=== PATIENT | female | born 1995 | race Caucasian/White ===

== ENCOUNTER 2019-04-24 11:50 | Inpatient (IN) | payer OTHER ==
[~2019-04-24] VITALS: Ht 175.3 cm; Wt 115.0 kg
[~2019-04-24 11:50] MED LIST: METF500T17 PO; PREN1TAB10 PO
[2019-04-24 12:31] LABS: CREATININE,URINE RANDOM 21.7 mg/dL
[2019-04-24 12:32] LABS: ALANINE AMINOTRANSFERASE 90 U/L (12-78); ALBUMIN 2.9 g/dL (3.4-5.0); ANION GAP 8 mmol/L (5-15); CALCIUM 8.9 mg/dL (8.5-10.1); CHLORIDE 110 mmol/L (98-107)
[2019-04-24 12:34] LABS: ALKALINE PHOSPHATASE 190 U/L (45-117); BILIRUBIN,TOTAL 0.7 mg/dL (0.2-1.0); TOTAL PROTEIN 6.6 g/dL (6.4-8.2)
[2019-04-24] MEDS ORDERED: OXYTOCIN 30U/ 0.9% NaCL 500ML 500 ML IV ONE (12:55)
[2019-04-24] MEDS: D5%-LACTATED RINGERS 1,000 ML IV SCH ×2 (12:55→20:55)
[2019-04-24] MEDS ORDERED: OXYTOCIN 30U/ 0.9% NaCL 500ML 500 ML IV PRN (12:55)
[2019-04-24 12:57] LABS: MEAN CORPUSCULAR HEMOGLOBIN 31.3 pg (27.0-34.8); MEAN CORPUSCULAR HGB CONC 33.5 g/dL (32.4-35.8); MEAN CORPUSCULAR VOLUME 93.3 fL (80-100); MEAN PLATELET VOLUME 13.7 fL (7.4-10.4); PLATELET COUNT 118 x10^3/uL (130-400); RED BLOOD COUNT 4.06 x10^6/uL (3.82-5.3); RED CELL DISTRIBUTION WIDTH 13.4 % (9.6-15.2)
[2019-04-24 12:59] LABS: BASOPHILS # (AUTO) 0.02 x10^3/uL (0-0.1); BASOPHILS % (AUTO) 0 % (0-1); EOSINOPHILS # (AUTO) 0.02 x10^3/uL (0-0.4); EOSINOPHILS % (AUTO) 0 % (1-7); LYMPHOCYTES # (AUTO) 1.69 x10^3/uL (1-3.4); LYMPHOCYTES % (AUTO) 17 % (22-44); MD MORPH REVIEW ONLY; MONOCYTES # (AUTO) 0.81 x10^3/uL (0.2-0.8); MONOCYTES % (AUTO) 8 % (2-9); NEUTROPHILS # (AUTO) 7.63 x10^3/uL (1.8-6.8); NEUTROPHILS % (AUTO) 75 % (42-75)
[2019-04-24 13:00] LABS: <PLATELET ESTIMATE> DECREASED; <RBC MORPHOLOGY> NORMAL; LARGE PLATELETS 1+
[2019-04-24] MEDS ORDERED: FENTANYL PF 100 MCG/2ML IV PRN (13:00)
[2019-04-24] MEDS ORDERED: METOCLOPRAMIDE 5 MG/ML, 2ML IVPush PRN (13:00)
[2019-04-24] MEDS ORDERED: MAGNESIUM SULFATE PMX 4GM/100M 100 ML IVPB ONE (13:00)
[2019-04-24] MEDS ORDERED: FENTANYL PF 100 MCG/2ML IVPush PRN (13:00)
[2019-04-24] MEDS ORDERED: SODIUM CITRATE/CITRIC ACID 30 ML UDC PO PRN (13:00)
[2019-04-24] MEDS ORDERED: CALCIUM CARBONATE 500 MG TAB.CHEW PO PRN (13:00)
[2019-04-24] MEDS ORDERED: TERBUTALINE 1 MG/ML, 1ML IVPush PRN (13:00)
[2019-04-24] MEDS ORDERED: TERBUTALINE 1 MG/ML, 1ML SQ PRN (13:00)
[2019-04-24] MEDS ORDERED: MAGNESIUM SULF. PMX 20GM/500ML 500 ML IV ONE ×2 (13:04→23:46)
[2019-04-24] MEDS ORDERED: MAGNESIUM SULFATE PMX 4GM/100M 100 ML ONE (13:04)
[2019-04-24] MEDS ORDERED: OXYTOCIN 30U/ 0.9% NaCL 500ML 500 ML ONE (13:04)
[2019-04-24] MEDS ORDERED: ONDANSETRON 2MG/ML, 2ML ONE ×2 (13:10→21:17)
[2019-04-24] MEDS: LACTATED RINGERS 1,000 ML IV SCH ×4 (13:14→21:47)
[2019-04-24] MEDS: ONDANSETRON 2MG/ML, 2ML IVPush PRN ×2 (13:14→21:19)
[2019-04-24] MEDS ORDERED: NEWBORN KIT ONE (13:23)
[2019-04-24] MEDS: MAGNESIUM SULF. PMX 20GM/500ML 500 ML IV SCH ×2 (13:43→23:49)
[2019-04-24] MEDS ORDERED: FENTANYL/BUPIV./NS/PF 250 ML EPIDCONT SCH (13:47)
[2019-04-24] MEDS ORDERED: EPHEDRINE 50 MG/ML, 1ML IVPush PRN (14:00)
[2019-04-24] MEDS ORDERED: LACTATED RINGERS 1,000 ML IVBOLUS PRN (14:00)
[2019-04-24] MEDS ORDERED: MISOPROSTOL 200 MCG TABLET ONE (14:02)
[2019-04-24] MEDS ORDERED: ACETAMINOPHEN 325 MG TABLET ONE (14:17)
[2019-04-24] MEDS ORDERED: ACETAMINOPHEN 325 MG TABLET PO PRN (14:30)
[2019-04-24] MEDS ORDERED: FENTANYL PF 500 MCG, BUPIVACAINE/PF 0.5%, 30ML 62.5 ML in SODIUM CHLORIDE 0.9% 177.5 ML EPIDCONT SCH (14:30)
[2019-04-24 15:23] VITALS: BP 137/85
[2019-04-24] MEDS ORDERED: BUPIVACAINE 0.25% ONE ×2 (19:42→19:43)
[2019-04-24] MEDS ORDERED: LIDOCAINE/PF 1.5%-EPI 1:200K, 30ML ONE (19:43)
[2019-04-24] MEDS ORDERED: EPHEDRINE 50 MG/ML, 1ML ONE ×2 (19:43→20:02)
[2019-04-24] MEDS ORDERED: FENTANYL/BUPIV./NS/PF 250 ML EPIDCONT ONE (19:43)
[2019-04-24 20:30] VITALS: BP 154/93
[2019-04-25] MEDS ORDERED: ONDANSETRON 2MG/ML, 2ML ONE ×3 (02:45→18:14)
[2019-04-25] MEDS: ONDANSETRON 2MG/ML, 2ML IVPush PRN (02:49)
[2019-04-25] MEDS: D5%-LACTATED RINGERS 1,000 ML IV SCH (03:59)
[2019-04-25] MEDS: LACTATED RINGERS 1,000 ML IV SCH ×2 (09:00→11:00)
[2019-04-25] MEDS ORDERED: MAGNESIUM SULF. PMX 20GM/500ML 500 ML IV ONE ×2 (10:05→21:38)
[2019-04-25] MEDS: MAGNESIUM SULF. PMX 20GM/500ML 500 ML IV SCH ×2 (10:11→21:42)
[2019-04-25] MEDS ORDERED: LACTATED RINGERS 1,000 ML IV SCH (12:15)
[2019-04-25] MEDS: OXYTOCIN 30U/ 0.9% NaCL 500ML 500 ML IV SCH ×2 (12:15→22:15)
[2019-04-25] MEDS ORDERED: SODIUM CITRATE/CITRIC ACID 30 ML UDC ONE (12:21)
[2019-04-25] MEDS ORDERED: METOCLOPRAMIDE 5 MG/ML, 2ML ONE (12:21)
[2019-04-25] MEDS ORDERED: KETOROLAC 30 MG/1 ML ONE ×2 (12:25→20:29)
[2019-04-25] MEDS ORDERED: PROPOFOL 10 MG/ML, 20ML ONE (12:25)
[2019-04-25] MEDS ORDERED: CEFAZOLIN 1,000 MG ONE (12:25)
[2019-04-25] MEDS ORDERED: OXYTOCIN 10 UNITS/ML, 1ML ONE (12:25)
[2019-04-25] MEDS ORDERED: EPHEDRINE 50 MG/ML, 1ML ONE (12:25)
[2019-04-25] MEDS ORDERED: SUCCINYLCHOLINE 20 MG/ML, 10ML ONE (12:25)
[2019-04-25] MEDS ORDERED: FENTANYL PF 100 MCG/2ML ONE ×4 (12:25→14:12)
[2019-04-25] MEDS ORDERED: DEXAMETHASONE 4 MG/ML, 1ML ONE (12:25)
[2019-04-25] MEDS ORDERED: PHENYLEPHRINE 10 MG/ML ONE (12:25)
[2019-04-25] MEDS ORDERED: CALCIUM CARBONATE 500 MG TAB.CHEW PO PRN (12:30)
[2019-04-25] MEDS ORDERED: RHOGAM FROM BLOOD BANK 1 NOTE EA IM/IV ONE (12:30)
[2019-04-25] MEDS ORDERED: DIPH,PERTUSS(ACELL),TET VAC/PF NC IM-VACC PRN (12:30)
[2019-04-25] MEDS ORDERED: SIMETHICONE 80 MG CHEW TAB PO PRN (12:30)
[2019-04-25] MEDS ORDERED: MISOPROSTOL 200 MCG TABLET PR PRN (12:30)
[2019-04-25] MEDS ORDERED: ONDANSETRON 2MG/ML, 2ML IV PRN (12:30)
[2019-04-25] MEDS ORDERED: OXYcodone/APAP 5/325MG TABLET PO PRN (12:30)
[2019-04-25] MEDS ORDERED: ACETAMINOPHEN 325 MG TABLET PO PRN (12:30)
[2019-04-25] MEDS ORDERED: morphine SULFATE/PF 0.5 MG/ML, 10ML ONE (13:18)
[2019-04-25] MEDS ORDERED: PROMETHAZINE 25 MG/ML, 1ML IV PRN (13:30)
[2019-04-25] MEDS ORDERED: MEPERIDINE/PF 25MG/0.5ML IVPush PRN (13:30)
[2019-04-25] MEDS ORDERED: OXYcodone 5 MG/5 ML ORAL.SOL UDC PO PRN ×2 (13:30→14:30)
[2019-04-25] MEDS ORDERED: HYDROmorphone 2 MG/ML, 1ML IVPush PRN (13:30)
[2019-04-25] MEDS ORDERED: HYDROcodone/APAP 7.5-325MG/15ML UDC PO PRN (13:30)
[2019-04-25] MEDS ORDERED: ALBUTEROL SULFATE 2.5 MG/3 ML NPPB PRN (13:30)
[2019-04-25] MEDS: KETOROLAC 30 MG/1 ML IV SCH ×2 (13:30→20:34)
[2019-04-25] MEDS ORDERED: EPHEDRINE 50 MG/ML, 1ML IVPush PRN (13:30)
[2019-04-25] MEDS ORDERED: hydrALAzine 20 MG/ML, 1ML IV PRN (13:30)
[2019-04-25] MEDS ORDERED: ONDANSETRON 2MG/ML, 2ML IVPush PRN (13:30)
[2019-04-25] MEDS ORDERED: LABETALOL 5MG/ML, 20ML IV PRN (13:30)
[2019-04-25] MEDS ORDERED: FENTANYL PF 100 MCG/2ML IV PRN (13:30)
[2019-04-25] MEDS ORDERED: MIDAZOLAM 1 MG/ML, 2ML IV PRN (13:30)
[2019-04-25] MEDS ORDERED: OXYTOCIN 30U/ 0.9% NaCL 500ML 500 ML ONE (13:52)
[2019-04-25] MEDS ORDERED: OXYcodone 5 MG/5 ML ORAL.SOL UDC ONE (14:13)
[2019-04-25] MEDS ORDERED: DEXAMETHASONE 4 MG/ML, 1ML IVPush ONE (20:00)
[2019-04-26] MEDS ORDERED: OXYcodone/APAP 5/325MG TABLET ONE ×3 (00:12→13:19)
[2019-04-26] MEDS: LACTATED RINGERS 1,000 ML IV SCH ×4 (00:21→18:15)
[2019-04-26] MEDS: OXYcodone/APAP 5/325MG TABLET PO PRN ×3 (00:55→13:24)
[2019-04-26] MEDS ORDERED: KETOROLAC 30 MG/1 ML ONE ×3 (02:20→15:57)
[2019-04-26] MEDS: KETOROLAC 30 MG/1 ML IV SCH ×4 (02:25→22:15)
[2019-04-26] MEDS: MAGNESIUM SULF. PMX 20GM/500ML 500 ML IV SCH (04:55)
[2019-04-26 06:00] LABS: MEAN CORPUSCULAR HEMOGLOBIN 30.8 pg (27.0-34.8); MEAN CORPUSCULAR HGB CONC 32.7 g/dL (32.4-35.8); MEAN CORPUSCULAR VOLUME 94.2 fL (80-100); MEAN PLATELET VOLUME 12.5 fL (7.4-10.4); PLATELET COUNT 137 x10^3/uL (130-400); RED BLOOD COUNT 3.55 x10^6/uL (3.82-5.3); RED CELL DISTRIBUTION WIDTH 13.4 % (9.6-15.2)
[2019-04-26 06:14] LABS: MD YES
[2019-04-26 06:16] LABS: BAND#(MANUAL) 0.52 x10^3/uL; BANDS%(MANUAL) 3 % (0-7); LYMPH#(MANUAL) 1.89 x10^3/uL (1-3.4); LYMPHS% (MANUAL) 11 % (22-44); MONOS#(MANUAL) 0.17 x10^3/uL (0.3-2.7); MONOS% (MANUAL) 1 % (2-9); SEG#(MANUAL) 14.62 x10^3/uL (1.8-6.8); SEGS% (MANUAL) 85 % (42-75)
[2019-04-26 06:17] LABS: <PLATELET ESTIMATE> ADEQUATE; <RBC MORPHOLOGY> NORMAL; LARGE PLATELETS 1+
[2019-04-26 07:35] VITALS: BP 135/84
[2019-04-26] MEDS ORDERED: MAGNESIUM SULF. PMX 20GM/500ML 500 ML IV ONE (08:03)
[2019-04-26] MEDS: OXYTOCIN 30U/ 0.9% NaCL 500ML 500 ML IV SCH ×2 (08:15→18:15)
[2019-04-26 12:06] VITALS: BP 133/77
[2019-04-26 15:09] VITALS: BP 122/74
[2019-04-26 16:45] VITALS: BP 129/75
[2019-04-26 18:00] VITALS: BP 122/69
[2019-04-26] MEDS: DOCUSATE 100 MG CAPSULE PO PRN (20:09)
[2019-04-26 20:15] VITALS: BP 138/88
[2019-04-27] MEDS: KETOROLAC 30 MG/1 ML IV SCH ×2 (03:47→10:13)
[2019-04-27 03:53] VITALS: BP 134/79
[2019-04-27] MEDS: LACTATED RINGERS 1,000 ML IV SCH (04:15)
[2019-04-27] MEDS: OXYTOCIN 30U/ 0.9% NaCL 500ML 500 ML IV SCH (04:15)
[2019-04-27 08:30] VITALS: BP 118/72
[2019-04-27] MEDS: PRENATAL VIT/IRON/FA 1 EACH TABLET PO SCH ×2 (09:00→10:13)
[2019-04-27] MEDS: DOCUSATE 100 MG CAPSULE PO PRN ×2 (10:13→23:19)
[2019-04-27 12:30] VITALS: BP 130/81
[2019-04-27] MEDS: IBUPROFEN 600 MG TABLET PO PRN ×2 (16:34→23:19)
[2019-04-27 19:25] VITALS: BP 138/89
[2019-04-28 00:15] VITALS: BP 132/82
[2019-04-28 05:45] VITALS: BP 136/90
[2019-04-28] MEDS: IBUPROFEN 600 MG TABLET PO PRN ×3 (05:59→18:37)
[2019-04-28 08:20] VITALS: BP 131/88
[2019-04-28] MEDS: DOCUSATE 100 MG CAPSULE PO PRN (09:16)
[2019-04-28] MEDS: PRENATAL VIT/IRON/FA 1 EACH TABLET PO SCH (09:16)
[2019-04-28 12:42] VITALS: BP 137/93
[2019-04-28 16:27] VITALS: BP 132/88
[2019-04-28 20:00] VITALS: BP 136/90
[2019-04-29] MEDS: OXYcodone/APAP 5/325MG TABLET PO PRN ×2 (00:10→06:25)
[2019-04-29] MEDS: IBUPROFEN 600 MG TABLET PO PRN ×3 (00:10→13:27)
[2019-04-29 00:40] VITALS: BP 132/87
[2019-04-29] MEDS ORDERED: OXYC-302 PO (02:28)
[2019-04-29] MEDS ORDERED: IBUP-1222 PO (02:29)
[2019-04-29 05:45] VITALS: BP 135/90
[2019-04-29 07:30] VITALS: BP 131/86
[2019-04-29] MEDS: DOCUSATE 100 MG CAPSULE PO PRN (09:11)
[2019-04-29] MEDS: PRENATAL VIT/IRON/FA 1 EACH TABLET PO SCH (09:11)
[2019-04-29 11:45] VITALS: BP 134/82
== END 2019-04-29 16:25 | disposition home or self-care (01) | DRG 788 ==
LOC: LDOP 11:50 → LDIP 12:57 → 2NW 04-25 16:18 → 2NE 04-25 16:19 → 2NW 04-26 20:49
PROVIDERS: ADMIT Obstetrics & Gynecology; ATTEND Obstetrics & Gynecology
PROC: 10D00Z1 Extraction of Products of Conception, Low, Open Approach (ICD-10-PCS; principal; 2019-04-25)
DX: O14.14 Severe pre-eclampsia complicating childbirth (principal); O62.0 Primary inadequate contractions; Z37.0 Single live birth; Z3A.38 38 weeks gestation of pregnancy; O99.284 Endocrine, nutritional and metabolic diseases complicating childbirth; E28.2 Polycystic ovarian syndrome; Z90.49 Acquired absence of other specified parts of digestive tract
CPT/HCPCS: 36415; J3490; J7121; 80053; 82570; 82803; 83735; 84156; 84550; 85025; 86850; 86900; G0378; J0690; J1100; J1885; J2274; J2405; J2704; J3010; J0330; J2370; J2590; J2765; J3475; J7120

== ENCOUNTER 2020-02-28 10:43 | Inpatient (IN) | payer OTHER ==
[~2020-02-28] VITALS: Ht 175.3 cm; Wt 113.5 kg
[~2020-02-28 10:43] MED LIST changes: +IBUP-1222 PO; +OXYC-302 PO
--- NOTE | 2020-02-28 11:00 | NUR ---
PT BIBA PER EMS REPORT PT CAME TO ER DUE TO RASH ON HER BODY. PER EMS PT WAS GIVEN EPINEPHRINE, ZOFRAN, ZANTAC, BENADRYL, AND 1L NS. PT STATES SHE HAS HAD THIS RASH PRIOR BUT IT IS NORMALLY ONLY ON HER WRISTS AND NEVER IS ON HER FACE. PT IS ALSO CURRENTLY TACHYCARDICA, HR 127. 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
[2020-02-28] MEDS ORDERED: methylPREDNISolone SOD SUCC 125 MG/2 ML ONE (11:19)
[2020-02-28] MEDS ORDERED: methylPREDNISolone SOD SUCC 125 MG/2 ML IVPush ONE (11:30)
[2020-02-28] MEDS ORDERED: hydrOXYzine 25 MG/ML IM ONE (11:30)
[2020-02-28] MEDS ORDERED: hydrOXYzine 50 MG/ML IM ONE (12:00)
[2020-02-28 12:07] LABS: BASOPHILS # (AUTO) 0.01 x10^3/uL (0-0.1); BASOPHILS % (AUTO) 0 % (0-1); EOSINOPHILS # (AUTO) 0.05 x10^3/uL (0-0.4); EOSINOPHILS % (AUTO) 1 % (1-7); LYMPHOCYTES # (AUTO) 1.43 x10^3/uL (1-3.4); LYMPHOCYTES % (AUTO) 17 % (22-44); MD NO; MEAN CORPUSCULAR HEMOGLOBIN 30.6 pg (27.0-34.8); MEAN CORPUSCULAR HGB CONC 33.1 g/dL (32.4-35.8); MEAN PLATELET VOLUME 10.1 fL (7.4-10.4); MONOCYTES # (AUTO) 0.12 x10^3/uL (0.2-0.8); MONOCYTES % (AUTO) 1 % (2-9); NEUTROPHILS # (AUTO) 6.92 x10^3/uL (1.8-6.8); NEUTROPHILS % (AUTO) 81 % (42-75); PLATELET COUNT 240 x10^3/uL (130-400); RED BLOOD COUNT 4.94 x10^6/uL (3.82-5.3); RED CELL DISTRIBUTION WIDTH 13.4 % (9.6-15.2)
[2020-02-28 12:15] LABS: ALBUMIN 2.8 g/dL (3.4-5.0); ANION GAP 4 mmol/L (5-15); CHLORIDE 112 mmol/L (98-107); CREATININE 0.63 mg/dL (0.55-1.02)
[2020-02-28] MEDS ORDERED: METF500T17 PO (12:30)
[2020-02-28] MEDS ORDERED: NORG1TAB6 PO (12:30)
--- NOTE | 2020-02-28 12:30 | NUR ---
PT RESTING IN [facility]. PT REPORTS HER SKIN STILL FEELS "ITCHY AND TIGHT". PT HAS NO OTHER COMPLAINTS AT THIS TIME.
[2020-02-28 13:50] VITALS: BP 106/70
[2020-02-28 14:16] VITALS: BP 106/70
[2020-02-28] MEDS ORDERED: ACETAMINOPHEN 325 MG TABLET PO PRN (15:30)
[2020-02-28] MEDS ORDERED: ONDANSETRON 2MG/ML, 2ML IVPush PRN (15:30)
[2020-02-28] MEDS: metFORMIN 500 MG TABLET PO SCH ×2 (15:45→23:48)
[2020-02-28] MEDS: methylPREDNISolone SOD SUCC 40 MG/ML IV SCH ×2 (15:45→23:48)
[2020-02-28] MEDS: HEPARIN 5,000 UNITS/ML, 1ML SQ SCH ×2 (15:45→23:30)
[2020-02-28] MEDS ORDERED: CETIRIZINE 10 MG TABLET PO SCH (19:00)
[2020-02-28 20:47] VITALS: BP 117/76
[2020-02-28] MEDS ORDERED: DIPHENHYDRAMINE 50 MG CAPSULE PO SCH (21:00)
[2020-02-28] MEDS: FAMOTIDINE 20 MG/2 ML IVPush SCH (21:06)
[2020-02-29 00:22] VITALS: BP 107/61
[2020-02-29] MEDS: CETIRIZINE 10 MG TABLET PO PRN ×2 (01:57→08:33)
[2020-02-29] MEDS ORDERED: [UNRECOGNIZED DRUG - REMARK] MC SCH (05:00)
[2020-02-29 05:03] LABS: ANION GAP 6 mmol/L (5-15); CALCIUM 8.4 mg/dL (8.5-10.1); CHLORIDE 108 mmol/L (98-107); CREATININE 0.55 mg/dL (0.55-1.02)
[2020-02-29 05:09] LABS: BASOPHILS % (AUTO) 0 % (0-1); EOSINOPHILS % (AUTO) 0 % (1-7); LYMPHOCYTES # (AUTO) 1.12 x10^3/uL (1-3.4); LYMPHOCYTES % (AUTO) 11 % (22-44); MD NO; MEAN CORPUSCULAR HEMOGLOBIN 30.2 pg (27.0-34.8); MEAN CORPUSCULAR HGB CONC 32.6 g/dL (32.4-35.8); MEAN PLATELET VOLUME 10.1 fL (7.4-10.4); MONOCYTES # (AUTO) 0.15 x10^3/uL (0.2-0.8); MONOCYTES % (AUTO) 1 % (2-9); NEUTROPHILS # (AUTO) 8.98 x10^3/uL (1.8-6.8); NEUTROPHILS % (AUTO) 88 % (42-75); PLATELET COUNT 233 x10^3/uL (130-400); RED BLOOD COUNT 4.35 x10^6/uL (3.82-5.3); RED CELL DISTRIBUTION WIDTH 13.3 % (9.6-15.2)
[2020-02-29 07:22] VITALS: BP 112/66
[2020-02-29] MEDS: HEPARIN 5,000 UNITS/ML, 1ML SQ SCH (07:30)
[2020-02-29] MEDS: metFORMIN 500 MG TABLET PO SCH (08:33)
[2020-02-29] MEDS: FAMOTIDINE 20 MG/2 ML IVPush SCH (08:33)
[2020-02-29] MEDS: methylPREDNISolone SOD SUCC 40 MG/ML IV SCH (08:33)
[2020-02-29] MEDS ORDERED: DIPHENHYDRAMINE 50 MG/ML, 1ML IVPush ONE (09:00)
[2020-02-29] MEDS ORDERED: DIPH50CA PO (09:04)
[2020-02-29] MEDS ORDERED: CETI10TA18 PO (09:04)
[2020-02-29] MEDS ORDERED: PRED50TA PO (09:04)
[2020-02-29] MEDS ORDERED: FAMO20TA7 PO (09:04)
== END 2020-02-29 11:00 | disposition home or self-care (01) | DRG 607 ==
LOC: ED 10:58 → 3N 12:11 → DCLOUNGE 02-29 10:57
PROVIDERS: ADMIT Hospitalist; ATTEND Hospitalist
DX: L50.1 Idiopathic urticaria (principal); R00.0 Tachycardia, unspecified; E28.2 Polycystic ovarian syndrome; Z90.49 Acquired absence of other specified parts of digestive tract
CPT/HCPCS: 36415; 96372; 99285; J3490; 80048; 82040; 84439; 84443; 85025; G0378; J1644; J3410; J1200; J2920; J2930